=== PATIENT | male | born 1990 | race African-American/Black ===

== ENCOUNTER 2017-05-19 11:08 | Emergency (ER) | payer MEDICAID ==
[~2017-05-19] VITALS: Ht 188 cm; Wt 141.0 kg
[2017-05-19 13:12] VITALS: BP 140/78
[2017-05-19] MEDS ORDERED: KETOROLAC 60MG/2ML VIAL IM ONE (13:15)
== END 2017-05-19 17:00 | disposition home or self-care (01) ==
LOC: ER 16:59
DX: G44.209 Tension-type headache, unspecified, not intractable (principal); Z88.0 Allergy status to penicillin
CPT/HCPCS: 96372; 99283; J1885; Z7610